=== PATIENT | female | born 1980 | race Caucasian/White ===

== ENCOUNTER 2016-08-17 05:57 | Emergency (ER) | payer OTHER ==
[~2016-08-17] VITALS: Ht 170.2 cm; Wt 70.4 kg
[~2016-08-17 05:57] MED LIST: ACYCLOVIR400 MG PO; ASPIRIN81 M1 PO; BACTRIM,SEPT1 TABLET; CARAFATE100 MG/ML PO; CO Q-10 100 MG1 EACH PO; CYMBALTA60 MG PO; DIAZEPAM10 MG PO; DICLOFENAC SODI75 MG PO; ENDOCET 5-3251 EACH; FLEXERIL10 MG PO; GABAPENTIN300 MG; LIDODERM700 MG TP; LIPITOR20 MG PO; MOTRIN800 MG PO; NEURONTIN300 MG PO; PEPCID20 MG PO; PROPRANOLOL HCL20 MG PO; SILVER SULFADIA50 GM; STOOL SOFTENER100 MG PO; SUBOXONE 8 MG-1 EAC2 SL; TIZANIDINE HCL4 M1 PO; TOPAMAX50 MG PO; VICODIN 5-3001 EACH PO; VITAMIN B12-FO1 EACH PO; ZOFRAN ODT8 MG PO; ZOFRAN4 MG PO; vitamin d3
[2016-08-17 06:27] LABS: CHLORIDE 103 mEq/L (99-109); POTASSIUM 3.8 mEq/L (3.7-5.4); SODIUM 137 mEq/L (136-147)
[2016-08-17 06:28] LABS: GLUCOSE 86 mg/dL (70-99)
[2016-08-17 06:30] LABS: ANION GAP 9 MEQ/L (2-14)
[2016-08-17 06:32] LABS: GFR ESTIMATE (CALCULATED) > 59 mL/min/
[2016-08-17 06:33] LABS: UREA NITROGEN (BUN) 14 mg/dL (9-23)
[2016-08-17 06:41] LABS: TROP-I INTERPRETATION NEGATIVE; TROPONIN-I < 0.01 ng/mL (0.0-0.30)
[2016-08-17 07:03] LABS: HEMATOCRIT 26.7 % (36.0-46.0); MCH 18.2 PG (29.0-34.0); MCV 67.6 FL (83-99); MEAN PLAT.VOLUME 8.7 uM^3 (9.5-12.4); PLATELET COUNT 299 K/uL (156-360); RBC DIS.WIDTH-CV 18.6 % (11.8-14.6); RBC DIS.WIDTH-SD 45.1 % (39-53); RED BLOOD COUNT 3.95 M/uL (3.80-5.20); WHITE BLOOD COUNT 7.7 K/uL (4.1-10.2)
[2016-08-17 07:15] LABS: DIRECT BILIRUBIN 0.1 mg/dL (0.0-0.3); SAMPLE HEMOLYSIS CHECK 0; SAMPLE ICTERIC CHECK 0; SAMPLE LIPEMIA CHECK 0; TOTAL BILIRUBIN 0.3 MG/DL (0.0-1.0)
[2016-08-17 07:20] LABS: ALKALINE PHOSPHATASE 40 IU/L (3-129)
[2016-08-17] MEDS ORDERED: ZOFRAN ODT4 MG PO (09:17)
[2016-08-17 09:26] VITALS: BP 108/65
== END 2016-08-17 09:29 | disposition home or self-care (01) ==
LOC: EME 05:57
DX: D64.9 Anemia, unspecified (principal); R10.9 Unspecified abdominal pain; R07.89 Other chest pain; F41.9 Anxiety disorder, unspecified; F11.10 Opioid abuse, uncomplicated; F17.200 Nicotine dependence, unspecified, uncomplicated
CPT/HCPCS: 71020; 80048; 80076; 84484; 85027; 93005; 99281; 99285; J1885; J2405; J7030

== ENCOUNTER 2017-02-20 11:49 | Emergency (ER) | payer OTHER ==
[~2017-02-20] VITALS: Ht 170.2 cm; Wt 56.8 kg
[~2017-02-20 11:49] MED LIST changes: +ZOFRAN ODT4 MG PO
[2017-02-20 13:21] LABS: EOSINOPHIL (%) 1.6 % (0-5); EOSINOPHIL COUNT 0.1 K/uL (0-0.3); HEMATOCRIT 27.6 % (36.0-46.0); IMMATURE GRANULOCYTE (%) 0.4 % (0.0-0.7); INSTRUMENT ABS NEUTROPHIL CT 6.2 K/uL; LYMPHOCYTE COUNT 1.5 K/uL (1.0-2.8); MCH 17.3 PG (29.0-34.0); MCHC 26.1 G/DL (30.0-36.0); MCV 66.5 FL (83-99); MEAN PLAT.VOLUME 9.2 uM^3 (9.5-12.4); MONOCYTE (%) 3.5 % (3-12); MONOCYTE COUNT 0.3 K/uL (0-0.8); NEUTROPHIL (%) 75.9 % (45-76); NEUTROPHIL COUNT 6.2 K/uL (1.8-6.4); PLATELET COUNT 250 K/uL (156-360); RBC DIS.WIDTH-SD 48.3 % (39-53); RED BLOOD COUNT 4.15 M/uL (3.80-5.20); WHITE BLOOD COUNT 8.1 K/uL (4.1-10.2)
[2017-02-20 13:24] LABS: CHLORIDE 110 mEq/L (99-109); POTASSIUM 3.9 mEq/L (3.7-5.4); SODIUM 145 mEq/L (136-147)
[2017-02-20 13:25] LABS: MAGNESIUM 2.3 mg/dL (1.3-2.7)
[2017-02-20 13:27] LABS: GLUCOSE 103 mg/dL (70-99)
[2017-02-20 13:28] LABS: ANION GAP 12 MEQ/L (2-14)
[2017-02-20 13:29] LABS: TOTAL BILIRUBIN 0.2 mg/dL (0.0-1.0)
[2017-02-20 13:30] LABS: SERUM ETHYL ALCOHOL 323 mg/dL
[2017-02-20 13:31] LABS: ALKALINE PHOSPHATASE 63 IU/L (3-129); GFR ESTIMATE (CALCULATED) > 59 mL/min/
[2017-02-20 13:33] LABS: UREA NITROGEN (BUN) 12 mg/dL (9-23)
[2017-02-20 13:34] LABS: SALICYLATE < 5.0 MG/DL (15-30)
[2017-02-21 00:19] VITALS: BP 121/89
== END 2017-02-21 00:40 | disposition home or self-care (01) ==
LOC: EME 11:49
PROVIDERS: Emergency Medicine
DX: R45.851 Suicidal ideations (principal); F10.129 Alcohol abuse with intoxication, unspecified; R05 Cough; R45.1 Restlessness and agitation; G89.29 Other chronic pain; Z90.710 Acquired absence of both cervix and uterus; F12.90 Cannabis use, unspecified, uncomplicated; F17.200 Nicotine dependence, unspecified, uncomplicated; Y90.8 Blood alcohol level of 240 mg/100 ml or more
CPT/HCPCS: 80053; 81003; 83735; 85025; 90839; 99281; 99285; G0480; J1630; J2060; J7030

== ENCOUNTER 2017-02-28 17:49 | Inpatient (IN) | payer OTHER ==
[~2017-02-28] VITALS: Ht 167.6 cm; Wt 63.6 kg
[2017-02-28 18:56] LABS: CHLORIDE 112 mEq/L (99-109); SODIUM 143 mEq/L (136-147)
[2017-02-28 18:59] LABS: GLUCOSE 102 mg/dL (70-99)
[2017-02-28 19:00] LABS: ANION GAP 9 MEQ/L (2-14)
[2017-02-28 19:01] LABS: TOTAL BILIRUBIN 0.3 mg/dL (0.0-1.0)
[2017-02-28 19:02] LABS: ALKALINE PHOSPHATASE 65 IU/L (3-129); SERUM ETHYL ALCOHOL 274 mg/dL
[2017-02-28 19:03] LABS: GFR ESTIMATE (CALCULATED) > 59 mL/min/; HEMATOCRIT 24.7 % (36.0-46.0); MCH 17.5 PG (29.0-34.0); MCHC 25.9 G/DL (30.0-36.0); MCV 67.7 FL (83-99); MEAN PLAT.VOLUME 8.5 uM^3 (9.5-12.4); PLATELET COUNT 267 K/uL (156-360); RBC DIS.WIDTH-CV 20.8 % (11.8-14.6); RBC DIS.WIDTH-SD 49.7 % (39-53); RED BLOOD COUNT 3.65 M/uL (3.80-5.20); WHITE BLOOD COUNT 5.5 K/uL (4.1-10.2)
[2017-02-28 19:04] LABS: UREA NITROGEN (BUN) 9 mg/dL (9-23)
[2017-02-28 23:59] VITALS: BP 132/62
[2017-03-01] VITALS (11 sets, daily range): BP systolic 110–153; BP diastolic 58–87
[2017-03-01 01:49] LABS: EOSINOPHILS 1.3 % (0-5.0); LYMPHOCYTES 32.1 % (15.0-45.0); SEG.NEUTROPHILS 58.4 % (46.0-76.0)
[2017-03-01 01:50] LABS: BASOPHILS 0.2 %; ORDERED MAN DIFF N
[2017-03-01 01:54] LABS: MAGNESIUM 1.9 mg/dL (1.3-2.7)
[2017-03-01 02:28] LABS: IRON 22 MCG/DL (35-150)
[2017-03-01 07:11] LABS: HEMATOCRIT 30.9 % (36.0-46.0); MCH 19.5 PG (29.0-34.0); MCHC 27.5 G/DL (30.0-36.0); MCV 70.9 FL (83-99); MEAN PLAT.VOLUME 8.7 uM^3 (9.5-12.4); PLATELET COUNT 244 K/uL (156-360); RBC DIS.WIDTH-CV 21.6 % (11.8-14.6); RBC DIS.WIDTH-SD 55.4 % (39-53); RED BLOOD COUNT 4.36 M/uL (3.80-5.20); WHITE BLOOD COUNT 6.1 K/uL (4.1-10.2)
[2017-03-01 07:15] LABS: ANION GAP 7 MEQ/L (2-14); CHLORIDE 108 MEQ/L (99-109); GFR ESTIMATE (CALCULATED) > 59 mL/min/; GLUCOSE 145 mg/dL (70-99); POTASSIUM 4.1 MEQ/L (3.7-5.4); SAMPLE HEMOLYSIS CHECK 0; SAMPLE ICTERIC CHECK 0; SAMPLE LIPEMIA CHECK 0; SODIUM 138 MEQ/L (136-147); UREA NITROGEN (BUN) 10 mg/dL (9-23)
[2017-03-01 12:54] LABS: ANISOCYTOSIS 2+; ATYPICAL LYMPHOCYTE 4.4 %; HYPOCHROMASIA 1+; MICROCYTOSIS 2+; PLAT.SUFFICIENCY ADEQUATE; SMUDGE CELLS 6.1
== END 2017-03-01 10:54 | disposition left against medical advice (07) | DRG 812 ==
LOC: EME → EDBD 17:49 → 5SOUTH 03-01 00:17 → EDOF 03-01 00:17 → ENRESERV 03-01 00:20 → 5SOUTH 03-01 01:33
PROVIDERS: Emergency Medicine; Hospitalist
PROC: 30233N1 Transfusion of Nonautologous Red Blood Cells into Peripheral Vein, Percutaneous Approach (ICD-10-PCS; principal; 2017-03-01)
DX: D50.0 Iron deficiency anemia secondary to blood loss (chronic) (principal); N92.0 Excessive and frequent menstruation with regular cycle; F10.20 Alcohol dependence, uncomplicated; Y90.8 Blood alcohol level of 240 mg/100 ml or more; J20.8 Acute bronchitis due to other specified organisms; F17.200 Nicotine dependence, unspecified, uncomplicated
CPT/HCPCS: 80048; 80053; 80306 90; 81003; 82607; 83540; 83735; 84439; 84443; 84466; 84481; 84703; 85007; 85027; 86850; 86900; 86901; 86920; 94640; 99202; 99281; 99285; G0480; J2930; J3411; J7030; J7040; P9016

== ENCOUNTER 2017-03-16 15:25 | Emergency (ER) | payer OTHER ==
[~2017-03-16] VITALS: Ht 167.6 cm; Wt 65.3 kg
[2017-03-16 17:39] LABS: HEMATOCRIT 35.5 % (36.0-46.0); MCH 19.8 PG (29.0-34.0); MCHC 27.6 G/DL (30.0-36.0); MCV 71.6 FL (83-99); MEAN PLAT.VOLUME 8.7 uM^3 (9.5-12.4); PLATELET COUNT 189 K/uL (156-360); RBC DIS.WIDTH-CV 25.4 % (11.8-14.6); RBC DIS.WIDTH-SD 64.3 % (39-53); RED BLOOD COUNT 4.96 M/uL (3.80-5.20); WHITE BLOOD COUNT 3.8 K/uL (4.1-10.2)
[2017-03-16 17:41] LABS: CHLORIDE 107 mEq/L (99-109); POTASSIUM 3.9 mEq/L (3.7-5.4); SODIUM 144 mEq/L (136-147)
[2017-03-16 17:44] LABS: GLUCOSE 130 mg/dL (70-99)
[2017-03-16 17:45] LABS: ANION GAP 11 MEQ/L (2-14); TOTAL BILIRUBIN 0.2 mg/dL (0.0-1.0)
[2017-03-16 17:45] LABS: AMPHETAMINE NEGATIVE (500 ng/mL); BARBITURATES NEGATIVE (200 ng/mL); BENZODIAZEPINES NEGATIVE (150 ng/mL); COCAINE NEGATIVE (150 ng/mL); INTERNAL CONTROLS VALID? YES; METHADONE NEGATIVE (200 ng/mL); METHAMPHETAMINE NEGATIVE (500 ng/mL); OPIATES (MORPHINE) NEGATIVE (100 ng/mL); OXYCODONE NEGATIVE (100 ng/mL); PHENCYCLIDINE NEGATIVE (25 ng/mL); PROPOXYPHENE NEGATIVE (300 ng/mL); THC CANNABINOIDS PRESUMPTIVE POSITIVE (50 ng/mL); TRICYCLIC ANTIDEPRESSANTS NEGATIVE (300 ng/mL)
[2017-03-16 17:46] LABS: ADD MEDTOX COMMENT Y
[2017-03-16 17:46] LABS: SERUM ETHYL ALCOHOL 296 mg/dL
[2017-03-16 17:47] LABS: ALKALINE PHOSPHATASE 67 IU/L (3-129); GFR ESTIMATE (CALCULATED) > 59 mL/min/
[2017-03-16 17:48] LABS: UREA NITROGEN (BUN) 10 mg/dL (9-23)
[2017-03-16 18:22] LABS: MARIJUANA QUANT VALUE 0 NG/ML
[2017-03-17] MEDS ORDERED: B-1100 MG PO (02:31)
[2017-03-17] MEDS ORDERED: LIBRIUM25 MG PO (02:31)
[2017-03-17 02:41] VITALS: BP 126/67
== END 2017-03-17 02:43 | disposition home or self-care (01) ==
LOC: EME 15:25
PROVIDERS: Physician Assistant
DX: F10.229 Alcohol dependence with intoxication, unspecified (principal); F32.9 Major depressive disorder, single episode, unspecified; Z88.0 Allergy status to penicillin; F17.200 Nicotine dependence, unspecified, uncomplicated
CPT/HCPCS: 80053; 84999; 85027; 90839; 99281; 99285; G0480

== ENCOUNTER 2017-04-06 13:41 | Emergency (ER) | payer OTHER ==
[~2017-04-06] VITALS: Ht 170.2 cm; Wt 95.4 kg
[~2017-04-06 13:41] MED LIST changes: +B-1100 MG PO; +LIBRIUM25 MG PO
[2017-04-06 14:34] LABS: HEMATOCRIT 42.8 % (36.0-46.0); MCH 20.5 PG (29.0-34.0); MCV 73.3 FL (83-99); PLATELET COUNT 226 K/uL (156-360); RBC DIS.WIDTH-CV 24.4 % (11.8-14.6); RBC DIS.WIDTH-SD 62.1 % (39-53); RED BLOOD COUNT 5.84 M/uL (3.80-5.20); WHITE BLOOD COUNT 5.7 K/uL (4.1-10.2)
[2017-04-06 14:35] LABS: ALBUMIN 4.4 g/dL (3.2-4.8); CHLORIDE 103 mEq/L (99-109); POTASSIUM 3.6 mEq/L (3.7-5.4); SODIUM 144 mEq/L (136-147)
[2017-04-06 14:37] LABS: GLUCOSE 80 mg/dL (70-99); TOTAL PROTEIN 8.9 g/dL (6.4-8.3)
[2017-04-06 14:39] LABS: TOTAL BILIRUBIN 0.4 mg/dL (0.0-1.0)
[2017-04-06 14:40] LABS: SERUM ETHYL ALCOHOL 405 mg/dL
[2017-04-06 14:41] LABS: ALKALINE PHOSPHATASE 78 IU/L (3-129); CREATININE 0.8 mg/dL (0.6-1.3); GFR ESTIMATE (CALCULATED) > 59 mL/min/
[2017-04-06 14:42] LABS: AST (GOT) 65 IU/L (2-34); UREA NITROGEN (BUN) 10 mg/dL (9-23)
[2017-04-06 14:44] LABS: ALT (GPT) 34 IU/L (3-49)
[2017-04-06 14:50] LABS: QUANTITATIVE HCG < 4.0 MIU/ML
[2017-04-06 18:26] LABS: APPEARANCE CLEAR ((CLEAR)); BILIRUBIN NEGATIVE; BLOOD NEGATIVE; COLOR YELLOW ((YELLOW)); GLUCOSE (STRIP) NEGATIVE; KETONES 5; LEUKOCYTES NEGATIVE; NITRITE NEGATIVE; PROTEIN (STRIP) 30; SPECIFIC GRAVITY 1.009 (1.000-1.030); UCUL ADDED? NO; UROBILINOGEN 0.2 MG/DL (0.2-1.0)
[2017-04-06 18:34] LABS: AMPHETAMINE NEGATIVE (500 ng/mL); BARBITURATES NEGATIVE (200 ng/mL); BENZODIAZEPINES PRESUMPTIVE POSITIVE (150 ng/mL); BUPRENORPHINE NEGATIVE (10 ng/mL); COCAINE NEGATIVE (150 ng/mL); METHADONE NEGATIVE (200 ng/mL); METHAMPHETAMINE NEGATIVE (500 ng/mL); OPIATES (MORPHINE) NEGATIVE (100 ng/mL); OXYCODONE NEGATIVE (100 ng/mL); PHENCYCLIDINE NEGATIVE (25 ng/mL); PROPOXYPHENE NEGATIVE (300 ng/mL); THC CANNABINOIDS NEGATIVE (50 ng/mL); TRICYCLIC ANTIDEPRESSANTS NEGATIVE (300 ng/mL)
[2017-04-06 19:50] LABS: BENZODIAZEPINES, URINE SCREEN POSITIVE (200 ng/mL)
[2017-04-07] MEDS ORDERED: B-1100 MG PO (03:09)
[2017-04-07] MEDS ORDERED: LIBRIUM25 MG PO (03:09)
[2017-04-07 04:02] VITALS: BP 105/56
== END 2017-04-07 04:09 | disposition home or self-care (01) ==
LOC: EME 13:41
PROVIDERS: Emergency Medicine
DX: F10.129 Alcohol abuse with intoxication, unspecified (principal); Y90.8 Blood alcohol level of 240 mg/100 ml or more; R45.851 Suicidal ideations; F32.9 Major depressive disorder, single episode, unspecified; F17.200 Nicotine dependence, unspecified, uncomplicated; Z88.0 Allergy status to penicillin
CPT/HCPCS: 80053; 81003; 84702; 84999; 85027; 90837; 99281; 99285; G0480

== ENCOUNTER → 2017-04-15 | Outpatient (CLI) | payer OTHER | END | disposition home or self-care (01) | LOC: CDC 11:08 | DX: Z01.810 Encounter for preprocedural cardiovascular examination (principal); R94.31 Abnormal electrocardiogram [ECG] [EKG] | CPT/HCPCS: 93000 ==

== ENCOUNTER 2017-06-01 05:06 | Emergency (ER) | payer OTHER ==
[~2017-06-01] VITALS: Ht 175.3 cm; Wt 64.3 kg
[2017-06-01 06:06] LABS: CHLORIDE 112 mEq/L (99-109); POTASSIUM 3.4 mEq/L (3.7-5.4); SODIUM 146 mEq/L (136-147)
[2017-06-01 06:08] LABS: GLUCOSE 109 mg/dL (70-99)
[2017-06-01 06:11] LABS: SERUM ETHYL ALCOHOL 487 mg/dL
[2017-06-01 06:12] LABS: CREATININE 0.6 mg/dL (0.6-1.3); GFR ESTIMATE (CALCULATED) > 59 mL/min/
[2017-06-01 06:13] LABS: UREA NITROGEN (BUN) 11 mg/dL (9-23)
[2017-06-01 06:20] LABS: BASOPHIL (%) 0.8 % (0-1); BASOPHIL COUNT 0.1 K/uL (0-0.1); EOSINOPHIL COUNT 0.1 K/uL (0-0.3); HEMOGLOBIN 11.2 G/DL (11.9-15.5); IMMATURE GRANULOCYTE (%) 0.3 % (0.0-0.7); LYMPHOCYTE (%) 33.7 % (15-42); LYMPHOCYTE COUNT 2.4 K/uL (1.0-2.8); MCH 21.7 PG (29.0-34.0); MCHC 29.5 G/DL (30.0-36.0); MCV 73.5 FL (83-99); MONOCYTE (%) 4.4 % (3-12); MONOCYTE COUNT 0.3 K/uL (0-0.8); NEUTROPHIL (%) 59.8 % (45-76); NEUTROPHIL COUNT 4.3 K/uL (1.8-6.4); PLATELET COUNT 238 K/uL (156-360); RBC DIS.WIDTH-CV 23.3 % (11.8-14.6); RBC DIS.WIDTH-SD 59.6 % (39-53); RED BLOOD COUNT 5.17 M/uL (3.80-5.20); WHITE BLOOD COUNT 7.2 K/uL (4.1-10.2)
[2017-06-01 06:21] LABS: QUANTITATIVE HCG < 4.0 MIU/ML
[2017-06-01 13:59] LABS: COCAINE NEGATIVE (150 ng/mL); METHAMPHETAMINE NEGATIVE (500 ng/mL); PHENCYCLIDINE NEGATIVE (25 ng/mL); THC CANNABINOIDS PRESUMPTIVE POSITIVE (50 ng/mL)
[2017-06-01 14:00] LABS: AMPHETAMINE NEGATIVE (500 ng/mL); BARBITURATES NEGATIVE (200 ng/mL); BENZODIAZEPINES NEGATIVE (150 ng/mL); BUPRENORPHINE NEGATIVE (10 ng/mL); METHADONE NEGATIVE (200 ng/mL); OPIATES (MORPHINE) NEGATIVE (100 ng/mL); OXYCODONE NEGATIVE (100 ng/mL); PROPOXYPHENE NEGATIVE (300 ng/mL); TRICYCLIC ANTIDEPRESSANTS NEGATIVE (300 ng/mL)
[2017-06-01] MEDS ORDERED: B-1100 MG PO (15:07)
[2017-06-01] MEDS ORDERED: LIBRIUM25 MG PO (15:07)
[2017-06-01 16:22] VITALS: BP 149/79
== END 2017-06-01 16:23 | disposition home or self-care (01) ==
LOC: EME → EDBD 05:06 → EME 05:06
PROVIDERS: Emergency Medicine
DX: F10.129 Alcohol abuse with intoxication, unspecified (principal); Y90.8 Blood alcohol level of 240 mg/100 ml or more; F17.200 Nicotine dependence, unspecified, uncomplicated; Z88.0 Allergy status to penicillin
CPT/HCPCS: 80048; 83735; 84702; 84999; 85025; 99281; 99285; G0480; J2060

== ENCOUNTER 2017-06-26 00:23 | Emergency (ER) | payer OTHER ==
[~2017-06-26] VITALS: Ht 167.6 cm; Wt 144.5 kg
[2017-06-26 02:39] VITALS: BP 134/92
== END 2017-06-26 02:40 | disposition home or self-care (01) ==
LOC: EME 00:23
PROC: 0HQFXZZ Repair Right Hand Skin, External Approach (ICD-10-PCS; principal; 2017-06-26)
DX: M54.2 Cervicalgia (principal); R07.81 Pleurodynia; Y04.8XXA Assault by other bodily force, initial encounter; S61.212A Laceration without foreign body of right middle finger without damage to nail, initial encounter; W26.0XXA Contact with knife, initial encounter; Z88.0 Allergy status to penicillin; F17.200 Nicotine dependence, unspecified, uncomplicated
CPT/HCPCS: 70450; 70498; 71045; 99281; 99283

== ENCOUNTER 2017-08-13 12:50 | Emergency (ER) | payer OTHER ==
[~2017-08-13] VITALS: Ht 170.2 cm; Wt 68.2 kg
[2017-08-13 14:08] LABS: HEMATOCRIT 33.2 % (36.0-46.0); HEMOGLOBIN 9.6 G/DL (11.9-15.5); MCH 20.9 PG (29.0-34.0); MCHC 28.9 G/DL (30.0-36.0); MCV 72.3 FL (83-99); PLATELET COUNT 355 K/uL (156-360); RBC DIS.WIDTH-CV 20.2 % (11.8-14.6); RBC DIS.WIDTH-SD 51.4 % (39-53); RED BLOOD COUNT 4.59 M/uL (3.80-5.20); WHITE BLOOD COUNT 6.5 K/uL (4.1-10.2)
[2017-08-13 14:13] LABS: CHLORIDE 106 mEq/L (99-109); POTASSIUM 3.4 mEq/L (3.7-5.4); SODIUM 146 mEq/L (136-147)
[2017-08-13 14:15] LABS: GLUCOSE 171 mg/dL (70-99); TOTAL PROTEIN 7.3 g/dL (6.4-8.3)
[2017-08-13 14:17] LABS: TOTAL BILIRUBIN 0.5 mg/dL (0.0-1.0)
[2017-08-13 14:18] LABS: ALKALINE PHOSPHATASE 65 IU/L (3-129); SERUM ETHYL ALCOHOL 263 mg/dL
[2017-08-13 14:19] LABS: CREATININE 0.7 mg/dL (0.6-1.3); GFR ESTIMATE (CALCULATED) > 59 mL/min/
[2017-08-13 14:20] LABS: AST (GOT) 55 IU/L (2-34); UREA NITROGEN (BUN) 12 mg/dL (9-23)
[2017-08-13 14:22] LABS: ALT (GPT) 24 IU/L (3-49)
[2017-08-13 14:26] LABS: APPEARANCE CLEAR ((CLEAR)); BILIRUBIN NEGATIVE; BLOOD MODERATE; COLOR YELLOW ((YELLOW)); GLUCOSE (STRIP) NEGATIVE; KETONES NEGATIVE; LEUKOCYTES NEGATIVE; NITRITE NEGATIVE; PROTEIN (STRIP) NEGATIVE; SPECIFIC GRAVITY 1.008 (1.000-1.030); UROBILINOGEN 0.2 MG/DL (0.2-1.0)
[2017-08-13 14:27] LABS: QUANTITATIVE HCG < 4.0 MIU/ML
[2017-08-13 14:33] LABS: BACTERIA NONE SEEN /HPF; EPITHELIAL CELLS RARE /HPF; MUCUS NONE SEEN /LPF; RED BLOOD CELLS NONE SEEN /HPF (0-5); WHITE BLOOD CELLS 0-5 /HPF (0-5)
[2017-08-13 14:36] LABS: AMPHETAMINE NEGATIVE (500 ng/mL); BARBITURATES NEGATIVE (200 ng/mL); BENZODIAZEPINES NEGATIVE (150 ng/mL); BUPRENORPHINE NEGATIVE (10 ng/mL); COCAINE NEGATIVE (150 ng/mL); METHADONE NEGATIVE (200 ng/mL); METHAMPHETAMINE NEGATIVE (500 ng/mL); OPIATES (MORPHINE) NEGATIVE (100 ng/mL); OXYCODONE NEGATIVE (100 ng/mL); PHENCYCLIDINE NEGATIVE (25 ng/mL); PROPOXYPHENE NEGATIVE (300 ng/mL); THC CANNABINOIDS NEGATIVE (50 ng/mL); TRICYCLIC ANTIDEPRESSANTS NEGATIVE (300 ng/mL)
[2017-08-13 16:42] VITALS: BP 131/73
== END 2017-08-13 16:44 | disposition home or self-care (01) ==
LOC: EME 12:50
PROVIDERS: Emergency Medicine
DX: F10.129 Alcohol abuse with intoxication, unspecified (principal); Y90.8 Blood alcohol level of 240 mg/100 ml or more; F17.200 Nicotine dependence, unspecified, uncomplicated; Z88.0 Allergy status to penicillin
CPT/HCPCS: 80053; 81003; 84702; 85027; 99281; 99284; G0480